=== PATIENT | female | born 1950 | race Caucasian/White ===

== ENCOUNTER 2017-03-12 04:26 | Emergency (ER) | payer MEDICAID ==
[~2017-03-12] VITALS: Ht 157.5 cm; Wt 81.0 kg
[~2017-03-12 04:26] MED LIST: ASPI81TA3 PO; BENA20TA48 PO; GEMF600T60 PO; GLIP5TAB13 PO; LORA10CA PO; METF1000 PO; METO-448 PO; METO25TA4 PO; MTF1000T PO; ONDA-43 PO
[2017-03-12 04:29] VITALS: Ht 157.5 cm; Wt 81.0 kg
[2017-03-12] MEDS ORDERED: HYDR12.58 PO (05:39)
[2017-03-12] MEDS ORDERED: ASPI-535 PO (05:39)
[2017-03-12] MEDS ORDERED: ATOR40TA68 PO (05:39)
[2017-03-12 05:45] LABS: BASOPHILS % 0.1 % (0.0-2.0); HEMATOCRIT 39.4 % (37.0-47.0); HEMOGLOBIN 13.4 g/dl (12.0-16.0); LYMPHOCYTES % 13.6 % (15.0-51.0); MEAN CORPUSCULAR HEMOGLOBIN 28.7 pg (29.0-33.0); MEAN CORPUSCULAR VOLUME 84.4 fl (82.0-101.0); MEAN PLATELET VOLUME 10.7 fl (7.4-10.4); MONOCYTE # 0.4 10^3/ul (0.3-0.9); MONOCYTES % 2.9 % (0.0-11.0); NEUTROPHIL # 12.4 10^3/ul (1.6-7.5); NEUTROPHILS % 83.1 % (39.0-77.0); PLATELET COUNT 314 10^3/UL (140-415); RED BLOOD COUNT 4.67 10^6/ul (4.20-5.40); RED CELL DISTRIBUTION WIDTH 12.9 % (11.5-14.5)
[2017-03-12 06:11] LABS: INR 0.95; PROTIME 12.7 Sec (12.2-14.2)
[2017-03-12 06:12] LABS: PARTIAL THROMBOPLASTIN TIME 25.2 Sec (25.0-35.0)
[2017-03-12 06:23] LABS: ANION GAP 20 (8-16); BLOOD UREA NITROGEN 20 mg/dl (7-20); CALCIUM 9.8 mg/dl (8.4-10.2); CARBON DIOXIDE 27 mmol/L (21-31); CHLORIDE 97 mmol/L (97-110); CREATININE 0.67 mg/dl (0.44-1.00); POTASSIUM 4.2 mmol/L (3.5-5.1); SODIUM 140 mmol/L (135-144)
--- NOTE | 2017-03-12 06:52 | RADRPT ---
PROCEDURE: CHEST - 1 VIEW CLINICAL INDICATION: 67-year-old female with chest pain. TECHNIQUE: A single frontal AP upright portable view of the chest was performed. The images were reviewed on a PACS workstation. COMPARISON: Chest x-ray November 19, 2014. FINDINGS: There is a shallow inspiration accentuating the heart size. Accounting for this, the cardiomediastin al silhouette is prominent but within normal limits without significant interval change. There is n o evidence for an infiltrate. There is no evidence for congestive heart failure. There is no eviden ce for pneumothorax. Mild degenerative changes are present within the spine. IMPRESSION: No evidence for active cardiopulmonary disease. .Cisco Perez MD, Date Time Electronically viewed and signed by .Cisco Perez MD, on 03/12/2017 06:52 .Fareed/
--- NOTE | 2017-03-12 07:12 | ERD ---
ER Documentation Chief Complaint Date/Time DATE: 03/12/17 TIME: 07:02 Chief Complaint pressure like chest pain x 2 days HPI 67-year-old female history of diabetes, hypertension, hyperlipidemia and prior CVA with no residual deficits ambulatory to the emergency department complaining of chest pain. Over the last 6-7 days she has experienced unprovoked, intermittent, nonradiating, mild to moderate episodes of pressure- like, left upper chest pain that accompanied by mild shortness of breath and cough. No nausea, vomiting or diaphoresis. She was seen at [facility] days ago for similar symptoms and diagnosed with musculoskeletal chest pain. Symptoms however have been ongoing. Denies leg pain or swelling. No cough or hemoptysis. No relieving or exacerbating factors. Denies abdominal pain or back pain. Mild, generalized headache but no visual changes, focal weakness or numbness. Blood sugars have also been out of control over the last 24 hours in the 400 mg/dL range. No rhinorrhea, sore throat or body aches. No fevers or chills. ROS All systems reviewed and are negative except as per history of present illness. Medications Home Meds Active Scripts Aspirin* (Aspirin* EC) 81 Mg Tablet., 81 MG PO DAILY for 30 Days, TAB Prov:BRIAN CURTIS MD 03/12/17 Metformin* (Glucophage*) 1,000 Mg Tablet, 1000 MG PO BID, #60 TAB Prov:KEITH KULKARNI MD 11/01/15 Gemfibrozil* (Gemfibrozil*) 600 Mg Tablet, 600 MG PO BID for 30 Days, TAB Prov:SAMIR WILLIAMSON PA-C 06/22/15 Aspirin (Aspirin) 81 Mg Chew, 81 MG PO DAILY for 90 Days, TAB Prov:NATHAN LANG MD 11/21/14 Metoprolol Tartrate* (Lopressor*) 25 Mg Tab, 25 MG PO Q12 for 60 Days, TAB Prov:NATHAN LANG MD 11/21/14 Reported Medications Atorvastatin* (Atorvastatin*) 40 Mg Tablet, 40 MG PO QHS, #30 TAB 03/12/17 Hydrochlorothiazide* (Hydrochlorothiazide*) 12.5 Mg Tablet, 12.5 MG PO DAILY, # 30 TAB 03/12/17 Aspirin Ec (Aspir 81) 81 Mg Tablet., 81 MG PO DAILY, #30 TAB 03/12/17 Benazepril Hcl* (Benazepril Hcl*) 20 Mg Tablet, 20 MG PO DAILY, TAB 11/17/14 Discontinued Reported Medications Metformin* (Glucophage*) 1,000 Mg Tablet, 1000 MG PO BID, TAB 11/17/14 Glipizide* (Glipizide*) 5 Mg Tablet, 5 MG PO BID, TAB 11/17/14 Discontinued Scripts Loratadine* (Claritin*) 10 Mg Capsule, 10 MG PO DAILY, #10 CAP Prov:KEITH KULKARNI MD 11/01/15 Glipizide* (Glipizide*) 5 Mg Tablet, 5 MG PO BID, #60 TAB Prov:KEITH KULKARNI MD 11/01/15 Metoprolol Tartrate* (Lopressor*) 25 Mg Tablet, 25 MG PO BID, #60 TAB Prov:KEITH KULKARNI MD 11/01/15 Ondansetron Hcl* (Zofran*) 4 Mg Tab, 4 MG PO Q4H Y for NAUSEA AND OR VOMITING, # 10 TAB Prov:AUSTIN CHAMBERS DO 07/05/15 Metformin Hcl* (Metformin Hcl*) 1,000 Mg Tablet, 1000 MG PO BID WITH MEALS for 30 Days, TAB Prov:SAMIR WILLIAMSON PA-C 06/22/15 Allergies Allergies: Coded Allergies: morphine (Unverified Allergy, Mild, 03/12/17) PMhx/Soc Reviewed in chart. As per HPI. History of Surgery: Yes (HERNIA) Anesthesia Reaction: No Hx Neurological Disorder: Yes (CVA) Hx Respiratory Disorders: No Hx Cardiac Disorders: Yes (HTN, HIGH CHOLESTEROL, chest pain) Hx Psychiatric Problems: No Hx Miscellaneous Medical Probl: Yes (DM) Hx Alcohol Use: No Hx Substance Use: No Hx Tobacco Use: No Smoking Status: Never smoker FmHx Mother: Diabetes. No family history of heart disease or cancer. Physical Exam Vitals Vital Signs Date Time Temp Pulse Resp B/P Pulse Ox O2 Delivery O2 Flow Rate FiO2 03/12/17 12:20 98.4 74 20 160/69 97 Room Air 03/12/17 06:39 82 18 169/87 96 Room Air 03/12/17 06:00 75 19 152/75 95 03/12/17 05:25 Nasal Cannula 2 03/12/17 05:00 87 20 168/99 95 Room Air 03/12/17 04:29 98.2 96 20 189/88 98 Physical Exam Const: Alert, anxious. Head: Atraumatic Eyes: Normal Conjunctiva ENT: Normal External Ears, Nose and Mouth. Neck: Full range of motion. Nontender. No JVD. Resp: Breath sounds are equal and clear to auscultation bilaterally Cardio: Regular rate and rhythm, no murmurs Chest Wall: Reproducible left chest wall tenderness on light palpation. No subcutaneous crepitus. No ecchymosis or bruising Abd: Soft, obese, non tender, non distended. Normal bowel sounds Skin: No petechiae or rashes Back: No midline or flank tenderness Ext: No cyanosis, or edema Neur: Awake and alert. Cranial nerves II through XII are grossly intact. No focal deficit. Psych: Appears anxious but not depressed. Result Diagram: 03/12/17 0531 03/12/1731 Results 24 hrs Laboratory Tests Test 03/12/17 05:31 03/12/17 06:37 03/12/17 09:07 03/12/17 09:26 White Blood Count 15.010^3/ul Red Blood Count 4.6710^6/ul Hemoglobin 13.4g/dl Hematocrit 39.4% Mean Corpuscular Volume 84.4fl Mean Corpuscular Hemoglobin 28.7pg Mean Corpuscular Hemoglobin Concent 34.0g/dl Red Cell Distribution Width 12.9% Platelet Count 47001^3/UL Mean Platelet Volume 10.7fl Neutrophils % 83.1% Lymphocytes % 13.6% Monocytes % 2.9% Eosinophils % 0.0% Basophils % 0.1% Nucleated Red Blood Cells % 0.0/100WBC Neutrophils # 12.410^3/ul Lymphocytes # 2.010^3/ul Monocytes # 0.410^3/ul Eosinophils # 0.010^3/ul Basophils # 0.010^3/ul Nucleated Red Blood Cells # 0.010^3/ul Prothrombin Time 12.7Sec Prothrombin Time Ratio 1.0 INR International Normalized Ratio 0.95 Activated Partial Thromboplast Time 25.2Sec Sodium Level 140mmol/L Potassium Level 4.2mmol/L Chloride Level 97mmol/L Carbon Dioxide Level 27mmol/L Anion Gap 20 Blood Urea Nitrogen 20mg/dl Creatinine 0.67mg/dl Glucose Level 416mg/dl Calcium Level 9.8mg/dl Troponin I < 0.012ng/ml < 0.012ng/ml Bedside Glucose 372mg/dL 320mg/dL Test 03/12/17 11:05 Creatine Kinase 115IU/L Creatine Kinase Index 2.4 Creatinine Kinase MB (Mass) 2.76ng/ml Troponin I < 0.012ng/ml Current Medications Medications (Trade) Dose Ordered Sig/Jessee Route PRN Reason Start Time Stop Time Status Last Admin Dose Admin Ketorolac Tromethamine 15 mg 15 mg ONCE STAT IV 03/12/17 07:13 03/12/17 07:14 DC 03/12/17 07:30 Sodium Chloride (NS) 1,000 ml @ 1,000 mls/hr Q1H STAT IV 03/12/17 07:41 03/12/17 08:40 DC 03/12/17 07:54 EKG: TIME: 04:35. Sinus rhythm. Ventricular rate 89. Occasional PVCs. Normal NH and QRS. No ST segment elevation or depression. EP Interpretation: Abnormal EKG. EKG: Time: 08:54. Sinus rhythm. Ventricular rate 74, normal NH and QRS intervals. No acute ST segment elevation or depression. No axis deviation or ectopy. EP Impression: Normal EKG IMAGING: PROCEDURE: CHEST - 1 VIEW CLINICAL INDICATION: 67-year-old female with chest pain. TECHNIQUE: A single frontal AP upright portable view of the chest was performed. The images were reviewed on a PACS workstation. COMPARISON: Chest x-ray November 19, 2014. FINDINGS: There is a shallow inspiration accentuating the heart size. Accounting for this , the cardiomediastinal silhouette is prominent but within normal limits without significant interval change. There is no evidence for an infiltrate. There is no evidence for congestive heart failure. There is no evidence for pneumothorax. Mild degenerative changes are present within the spine. IMPRESSION: No evidence for active cardiopulmonary disease. .Cisco Perez MD, MD Date Time Electronically viewed and signed by .Cisco Perez MD, on 03/12/2017 06:52 .M/ Procedures/MDM DOCUMENTS REVIEWED: ED nurse, prior ED, prior records REEXAMINATION/REEVALUATION: Time 07:45. Pain decrease. Vital signs stable. REEXAMINATION/REEVALUATION: Time 08:45. Doing well. No chest pain. REEXAMINATION/REEVALUATION: Time 10:00. Doing well. No chest pain. MEDICAL DECISION MAKIN-year-old female history of diabetes, hypertension, hyperlipidemia and prior CVA with no residual deficits ambulatory to the emergency department complaining of chest pain. Serial ECGs and troponins 2 are negative. Heart score is 3. Etiology of her pain is likely musculoskeletal as there is reproducible tenderness to light palpation. Doubt aortic dissection or pulmonary embolism. Patient with long history of similar symptoms. Observed in the ED for over 4 hours. Pain resolved. Diabetes out of control without DKA or HONK. Improved with hydration. Stable for discharge precautionary instructions and urgent outpatient follow-up for further risk stratification within the next 48 hours. Counseled patient and family regarding diagnostic workup, diagnosis and need for followup. Understands to return to ED if symptoms recur, worsen or any other concerns. Observation Note: Time: 4 hours Family Hx: No Hypertension Evaluation: Multiple exams showed improving symptoms and no evidence of acute coronary syndrome Departure Diagnosis: Primary Impression: Chest pain Chest pain type: unspecified Qualified Code: R07.9 - Chest pain, unspecified type Additional Impressions: Diabetes mellitus out of control Diabetes mellitus type: type 2 Diabetes mellitus complication status: without complication Diabetes mellitus nursing home insulin use: without buttermaker helper use Qualified Code: E11.65 - Uncontrolled type 2 diabetes mellitus without complication, without long-term current use of insulin Chest pain of uncertain etiology Hypertension Hypertension type: essential hypertension Qualified Code: I10 - Essential hypertension Condition: Stable BRIAN CURTIS MD Mar 12, 2017 07:12
[2017-03-12] MEDS ORDERED: KETOROLAC 15 MG INJ IV STA (07:13)
[2017-03-12 07:18] LABS: GLUCOSE 416 mg/dl (70-220); TROPONIN-I < 0.012 ng/ml (0.00-0.12)
[2017-03-12] MEDS ORDERED: SOD CHLORIDE 0.9% 1,000 ML IV STA (07:41)
[2017-03-12] MEDS ORDERED: ASPI-664 PO (10:52)
[2017-03-12 11:49] LABS: CREATINE KINASE 115 IU/L (23-200)
[2017-03-12 12:00] LABS: CK-MB 2.76 ng/ml (0.0-2.4); TROPONIN-I < 0.012 ng/ml (0.00-0.12)
[2017-03-12 12:20] VITALS: BP 160/69; PULSE 74; RESP 20; TEMP 98.4
== END 2017-03-12 12:21 | disposition home or self-care (01) ==
LOC: E/R 04:26
DX: R07.89 Other chest pain (principal); E11.65 Type 2 diabetes mellitus with hyperglycemia; I10 Essential (primary) hypertension; Z79.82 Long term (current) use of aspirin; Z79.84 Long term (current) use of oral hypoglycemic drugs
CPT/HCPCS: 71010; 80048; 82550; 82553; 82962; 84484; 85025; 85610; 85730; 93005; J1885; J7030; 36415; 96361; 96374

== ENCOUNTER 2017-03-15 12:46 | Emergency (ER) | payer MEDICAID ==
[~2017-03-15] VITALS: Ht 165.1 cm; Wt 80.0 kg
[~2017-03-15 12:46] MED LIST changes: +ASPI-535 PO; +ASPI-664 PO; +ATOR40TA68 PO; -GLIP5TAB13 PO; +HYDR12.58 PO; -LORA10CA PO; -METF1000 PO; -METO25TA4 PO; -ONDA-43 PO
[2017-03-15 13:02] VITALS: Ht 165.1 cm; Wt 80.0 kg
[2017-03-15] MEDS ORDERED: SOD CHLORIDE 0.9% 1,000 ML IV STA (15:55)
[2017-03-15 16:41] LABS: ABNORMAL IP MESSAGE 1; BASOPHIL # 0.1 10^3/ul (0.0-0.1); BASOPHILS % 0.4 % (0.0-2.0); EOSINOPHILS # 0.1 10^3/ul (0.0-0.5); EOSINOPHILS % 0.7 % (0.0-7.0); HEMATOCRIT 40.2 % (37.0-47.0); HEMOGLOBIN 13.8 g/dl (12.0-16.0); LYMPHOCYTES # 5.5 10^3/ul (0.8-2.9); LYMPHOCYTES % 41.2 % (15.0-51.0); MEAN CORPUSCULAR HEMOGLOBIN 29.1 pg (29.0-33.0); MEAN CORPUSCULAR HGB CONC 34.3 g/dl (32.0-37.0); MEAN CORPUSCULAR VOLUME 84.8 fl (82.0-101.0); MEAN PLATELET VOLUME 10.6 fl (7.4-10.4); MONOCYTE # 0.9 10^3/ul (0.3-0.9); MONOCYTES % 6.3 % (0.0-11.0); NEUTROPHIL # 6.8 10^3/ul (1.6-7.5); NEUTROPHILS % 51.1 % (39.0-77.0); PLATELET COUNT 325 10^3/UL (140-415); RED BLOOD COUNT 4.74 10^6/ul (4.20-5.40); RED CELL DISTRIBUTION WIDTH 12.8 % (11.5-14.5); WHITE BLOOD COUNT 13.4 10^3/ul (4.8-10.8)
[2017-03-15 16:49] LABS: POSITIVE DIFF @See below
[2017-03-15 16:54] LABS: ADD UMIC YES; UR ASCORBIC ACID NEGATIVE (NEGATIVE); UR BILIRUBIN (Dip) NEGATIVE (NEGATIVE); UR BLOOD (Dip) NEGATIVE (NEGATIVE); UR CLARITY CLEAR (CLEAR); UR COLOR YELLOW (YELLOW); UR GLUCOSE (Dip) 3+ mg/dL (NEGATIVE); UR KETONES (Dip) NEGATIVE (NEGATIVE); UR LEUKOCYTE ESTERASE (Dip) TRACE Leu/ul (NEGATIVE); UR NITRITE (Dip) NEGATIVE (NEGATIVE); UR RBC 0 /HPF (0-5); UR SPECIFIC GRAVITY (Dip) 1.016 (1.003-1.030); UR TOTAL PROTEIN (Dip) NEGATIVE (NEGATIVE); UR UROBILINOGEN (Dip) NEGATIVE (NEGATIVE)
[2017-03-15 17:05] LABS: ALBUMIN 4.5 g/dl (3.3-4.9); ALBUMIN/GLOBULIN RATIO 1.21; BILIRUBIN,INDIRECT 0.2 mg/dl (0-1.1); BILIRUBIN,TOTAL 0.2 mg/dl (0.2-1.3); CALCIUM 10.2 mg/dl (8.4-10.2); CREATININE 0.68 mg/dl (0.44-1.00); POTASSIUM 4.1 mmol/L (3.5-5.1); TOTAL PROTEIN 8.2 g/dl (6.1-8.1)
[2017-03-15] MEDS ORDERED: ASPI-664 PO (17:39)
[2017-03-15] MEDS ORDERED: ATOR40TA68 PO (17:39)
[2017-03-15] MEDS ORDERED: HYDR12.58 PO (17:39)
[2017-03-15] MEDS ORDERED: METF1000 PO (17:40)
[2017-03-15] MEDS ORDERED: BENA40TA41 PO (17:40)
--- NOTE | 2017-03-15 17:58 | ERD ---
ER Documentation Chief Complaint Date/Time DATE: 03/15/17 TIME: 17:56 Chief Complaint EVAL OF ELEVATED BLOOD GLUCOSE HPI This is a 67-year-old female who presents to the emergency room for evaluation of elevated blood sugar. The patient does have a history of type 2 diabetes and is taking Metformin 1 g twice daily. The patient denies any fevers or chills associated with this elevated blood sugar. She states that her primary care physician is out of town and she cannot get into her primary care physician 's office so she came to the ER for evaluation. She denies any aggravating or relieving factors for her symptoms ROS All systems reviewed and are negative except as per history of present illness. Medications Home Meds Reported Medications Metformin Hcl* (Metformin Hcl*) 1,000 Mg Tablet, 1000 MG PO WITH BREAKFAST DINNE , #60 TAB 03/15/17 Benazepril Hcl* (Benazepril Hcl*) 40 Mg Tablet, 40 MG PO DAILY, #30 TAB 03/15/17 Hydrochlorothiazide* (Hydrochlorothiazide*) 12.5 Mg Tablet, 12.5 MG PO DAILY, # 30 TAB 03/15/17 Atorvastatin* (Atorvastatin*) 40 Mg Tablet, 40 MG PO QHS, #30 TAB 03/15/17 Aspirin* (Aspirin* EC) 81 Mg Tablet.dr, 81 MG PO DAILY, TAB 03/15/17 Discontinued Reported Medications Atorvastatin* (Atorvastatin*) 40 Mg Tablet, 40 MG PO QHS, #30 TAB 03/12/17 Hydrochlorothiazide* (Hydrochlorothiazide*) 12.5 Mg Tablet, 12.5 MG PO DAILY, # 30 TAB 03/12/17 Aspirin Ec (Aspir 81) 81 Mg Tablet.dr, 81 MG PO DAILY, #30 TAB 03/12/17 Benazepril Hcl* (Benazepril Hcl*) 20 Mg Tablet, 20 MG PO DAILY, TAB 11/17/14 Metformin* (Glucophage*) 1,000 Mg Tablet, 1000 MG PO BID, TAB 11/17/14 Glipizide* (Glipizide*) 5 Mg Tablet, 5 MG PO BID, TAB 11/17/14 Discontinued Scripts Aspirin* (Aspirin* EC) 81 Mg Tablet., 81 MG PO DAILY for 30 Days, TAB Prov:BRIAN CURTIS MD 03/12/17 Metformin* (Glucophage*) 1,000 Mg Tablet, 1000 MG PO BID, #60 TAB Prov:KEITH KULKARNI MD 11/01/15 Gemfibrozil* (Gemfibrozil*) 600 Mg Tablet, 600 MG PO BID for 30 Days, TAB Prov:SAMIR WILLIAMSON PA-C 06/22/15 Aspirin (Aspirin) 81 Mg Chew, 81 MG PO DAILY for 90 Days, TAB Prov:NATHAN LANG MD 11/21/14 Metoprolol Tartrate* (Lopressor*) 25 Mg Tab, 25 MG PO Q12 for 60 Days, TAB Prov:NATHAN LANG MD 11/21/14 Loratadine* (Claritin*) 10 Mg Capsule, 10 MG PO DAILY, #10 CAP Prov:KEITH KULKARNI MD 11/01/15 Glipizide* (Glipizide*) 5 Mg Tablet, 5 MG PO BID, #60 TAB Prov:KEITH KULKARNI MD 11/01/15 Metoprolol Tartrate* (Lopressor*) 25 Mg Tablet, 25 MG PO BID, #60 TAB Prov:KEITH KULKARNI MD 11/01/15 Ondansetron Hcl* (Zofran*) 4 Mg Tab, 4 MG PO Q4H Y for NAUSEA AND OR VOMITING, # 10 TAB Prov:AUSTIN CHAMBERS DO 07/05/15 Metformin Hcl* (Metformin Hcl*) 1,000 Mg Tablet, 1000 MG PO BID WITH MEALS for 30 Days, TAB Prov:SAMIR WILLIAMSON PA-C 06/22/15 Allergies Allergies: Coded Allergies: morphine (Unverified Allergy, Mild, 03/15/17) PMhx/Soc History of Surgery: Yes (HERNIA) Anesthesia Reaction: No Hx Neurological Disorder: Yes (CVA) Hx Respiratory Disorders: No Hx Cardiac Disorders: Yes (HTN, HIGH CHOLESTEROL, chest pain) Hx Psychiatric Problems: No Hx Miscellaneous Medical Probl: Yes (DM) Hx Alcohol Use: No Hx Substance Use: No Hx Tobacco Use: No Smoking Status: Never smoker Physical Exam Vitals Vital Signs Date Time Temp Pulse Resp B/P Pulse Ox O2 Delivery O2 Flow Rate FiO2 03/15/17 13:02 97.9 91 19 140/79 99 Physical Exam INITIAL VITAL SIGNS: Reviewed by me GENERAL: The patient is well developed and appropriate for usual state of health in no apparent distress HEENT: Pupils equal, round, and reactive to light. EOMI. There is no scleral icterus. NECK: C-spine is soft and supple, there is no meningismus. There is no cervical lymphadenopathy. LUNGS: Clear to auscultation bilaterally. There are no rales, wheezes or rhonchi. HEART: Regular rate and rhythm, no murmurs, clicks, rubs or gallops. ABDOMEN: Soft, non-tender, non-distended. There are bowel sounds in all four quadrants. No rebound or guarding. EXTREMITIES: There is no peripheral cyanosis or edema. No focal swelling or erythema. NEUROLOGICAL: The patient moves all four extremities with 5/5 strength. Cranial nerves II - XII are intact. Normal gait. Alert and oriented SKIN: There is no apparent rash or petechiae. HEME/LYMPHATIC: There is no evidence of excessive bruising or lymphedema. PSYCHIATRIC: The patient does not appear anxious or depressed. Result Diagram: 03/15/17 1615 03/15/17 1615 Results 24 hrs Laboratory Tests Test 03/15/17 13:29 03/15/17 16:15 03/15/17 17:48 Bedside Glucose 331mg/dL 187mg/dL White Blood Count 13.410^3/ul Red Blood Count 4.7410^6/ul Hemoglobin 13.8g/dl Hematocrit 40.2% Mean Corpuscular Volume 84.8fl Mean Corpuscular Hemoglobin 29.1pg Mean Corpuscular Hemoglobin Concent 34.3g/dl Red Cell Distribution Width 12.8% Platelet Count 53481^3/UL Mean Platelet Volume 10.6fl Neutrophils % 51.1% Lymphocytes % 41.2% Monocytes % 6.3% Eosinophils % 0.7% Basophils % 0.4% Nucleated Red Blood Cells % 0.0/100WBC Neutrophils # 6.810^3/ul Lymphocytes # 5.510^3/ul Monocytes # 0.910^3/ul Eosinophils # 0.110^3/ul Basophils # 0.110^3/ul Nucleated Red Blood Cells # 0.010^3/ul Urine Color YELLOW Urine Clarity CLEAR Urine pH 5.0 Urine Specific [place] 1.016 Urine Ketones NEGATIVEmg/dL Urine Nitrite NEGATIVEmg/dL Urine Bilirubin NEGATIVEmg/dL Urine Urobilinogen NEGATIVEmg/dL Urine Leukocyte Esterase TRACELeu/ul Urine Microscopic RBC 0/HPF Urine Microscopic WBC 3/HPF Urine Hemoglobin NEGATIVEmg/dL Urine Glucose 3+mg/dL Urine Total Protein NEGATIVEmg/dl Sodium Level 141mmol/L Potassium Level 4.1mmol/L Chloride Level 96mmol/L Carbon Dioxide Level 25mmol/L Anion Gap 24 Blood Urea Nitrogen 17mg/dl Creatinine 0.68mg/dl Glucose Level 240mg/dl Calcium Level 10.2mg/dl Total Bilirubin 0.2mg/dl Direct Bilirubin 0.00mg/dl Indirect Bilirubin 0.2mg/dl Aspartate Amino Transf (AST/SGOT) 55IU/L Alanine Aminotransferase (ALT/SGPT) 71IU/L Alkaline Phosphatase 88IU/L Total Protein 8.2g/dl Albumin 4.5g/dl Globulin 3.70g/dl Albumin/Globulin Ratio 1.21 Lipase 178U/L Current Medications Medications (Trade) Dose Ordered Sig/Jessee Route PRN Reason Start Time Stop Time Status Last Admin Dose Admin Sodium Chloride (NS) 1,000 ml @ 1,000 mls/hr Q1H STAT IV 03/15/17 15:55 03/15/17 16:54 DC 03/15/17 16:37 Insulin Human Regular (Novolin-R) 7 unit ONCE ONCE SC 03/15/17 18:00 03/15/17 18:01 Cancel Insulin Human Regular (Novolin-R) 5 unit ONCE ONCE SC 03/15/17 18:00 03/15/17 18:01 Cancel Insulin Human Regular (Humulin R) 7 unit ONCE ONCE SC 03/15/17 18:00 03/15/17 18:01 Insulin Human Regular (Humulin R) 5 unit ONCE ONCE SC 03/15/17 18:00 03/15/17 18:01 Procedures/MDM This 67-year-old female presents to the ER for evaluation of high blood sugar. When I evaluated her her plan of care blood sugar was 331. This patient did have lab work drawn which did show elevated blood glucose. The patient was given 1 L of IV fluids. After her 1 L of IV fluids are finished the patient's blood sugars 187. She has no signs of DKA at this time. Normal anion gap. This patient was advised that she needs to control her diet and take her medication as prescribed. Both the patient's [id number] and son are in the room and they verbalized understanding. I advised her to increase her intake of water as well. This patient will be discharged at this time with a referral for outpatient community clinic Departure Diagnosis: Primary Impression: Uncontrolled diabetes mellitus Additional Impression: Hyperglycemia Condition: Stable AUSTIN CHAMBERS DO Mar 15, 2017 17:58
[2017-03-15] MEDS ORDERED: INSULIN REGULAR, HUMAN 100 UNIT/1 ML 3ML VIAL SC ONE ×2 (18:00)
[2017-03-15] MEDS ORDERED: INSULIN REGULAR 10 ML INJ SC ONE ×2 (18:00)
== END 2017-03-15 18:07 | disposition home or self-care (01) ==
LOC: E/R 12:46
DX: E11.65 Type 2 diabetes mellitus with hyperglycemia (principal); I10 Essential (primary) hypertension; Z79.82 Long term (current) use of aspirin; Z79.84 Long term (current) use of oral hypoglycemic drugs
CPT/HCPCS: 36415; 80053; 81001; 82962; 83690; 85025; J7030; Z7502; J1815

== ENCOUNTER 2017-11-30 20:23 | Emergency (ER) | END 2017-11-30 23:20 | disposition home or self-care (01) ==